=== PATIENT | female | born 1950 | race Asian ===

== ENCOUNTER 2017-09-19 13:23 | Outpatient (CLI) | payer OTHER ==
[~2017-09-19 13:23] MED LIST: GERITOL PO; KLOR-CON 1010 MEQ PO; MAG-OXIDE400 MG PO; METO10TA26 PO; MOBIC7.5 M1 PO; OMEGA XL PO; OMEP40CA PO; SENNA PLUS1 TAB; TEMA30CA18 PO
== END 2017-09-19 19:17 | disposition home or self-care (01) ==
LOC: MAMMO 13:23
DX: Z12.31 Encounter for screening mammogram for malignant neoplasm of breast (principal)

== ENCOUNTER 2018-09-21 09:12 | Outpatient (CLI) | payer OTHER | END 2018-09-21 21:51 | disposition home or self-care (01) | LOC: MAMMO 09:12 | DX: Z12.31 Encounter for screening mammogram for malignant neoplasm of breast (principal) ==

== ENCOUNTER 2019-09-25 09:59 | Outpatient (CLI) | payer OTHER | END 2019-09-25 20:17 | disposition home or self-care (01) | LOC: MAMMO 09:59 | DX: Z12.31 Encounter for screening mammogram for malignant neoplasm of breast (principal) ==

== ENCOUNTER 2020-11-10 14:55 | Outpatient (CLI) | payer OTHER | END 2020-11-10 19:41 | disposition home or self-care (01) | LOC: MAMMO 14:55 | PROVIDERS: ATTEND Nurse Practitioner Family | DX: Z12.31 Encounter for screening mammogram for malignant neoplasm of breast (principal) ==

== ENCOUNTER 2021-11-12 09:56 | Outpatient (CLI) | payer OTHER | END 2021-11-12 19:23 | disposition home or self-care (01) | LOC: MAMMO 09:56 | PROVIDERS: ATTEND Nurse Practitioner Family | DX: Z12.31 Encounter for screening mammogram for malignant neoplasm of breast (principal) ==

== ENCOUNTER 2021-11-29 14:36 | Emergency (ER) | payer OTHER ==
[~2021-11-29] VITALS: Ht 160 cm; Wt 84.8 kg
[2021-11-29 15:17] LABS: PLATELET COUNT 192 K/uL (152-353)
[2021-11-29 16:34] VITALS: BP 163/67; TEMP 98.7
== END 2021-11-29 16:34 | disposition home or self-care (01) ==
LOC: ED 14:36
PROVIDERS: Emergency Medicine Emergency Medical Services
DX: U07.1 COVID-19 (principal)
CPT/HCPCS: 36415; 80053; 85027; 87502; 87635; 96360; 99284; J1100; U0003

== ENCOUNTER 2022-02-22 10:21 | Outpatient (CLI) | payer OTHER | END 2022-02-22 19:10 | disposition home or self-care (01) | LOC: MRI 10:21 | PROVIDERS: ATTEND Orthopaedic Surgery | DX: M54.2 Cervicalgia (principal); M54.12 Radiculopathy, cervical region ==

== ENCOUNTER 2022-11-19 09:58 | Outpatient (CLI) | payer OTHER | END 2022-11-19 23:36 | disposition home or self-care (01) | LOC: MAMMO 09:58 | PROVIDERS: ATTEND Nurse Practitioner Family | DX: Z12.31 Encounter for screening mammogram for malignant neoplasm of breast (principal); Z78.0 Asymptomatic menopausal state ==